=== PATIENT | male | born 1970 | race Caucasian/White ===

== ENCOUNTER → 2024-06-03 08:37 | Outpatient (REF) | payer BC, SELFPAY ==
[2024-06-03 13:28] LABS: % Basophils 0.8 % (0-2); % Eosinophils 0.7 % (0-6); % Immature Granulocytes 0.3 % (0-0.5); % Lymphocytes 36.7 % (20.5-51.1); % Monocytes 8.1 % (1.7-9.3); % Neutrophils 53.4 % (42.2-75.2); Absolute Basophils 0.1 10^3/uL (0-0.2); Absolute Lymphocytes 2.2 10^3/uL (1.2-3.4); Absolute Monocytes 0.5 10^3/uL (0.1-0.6); Absolute Neutrophils 3.2 10^3/uL (1.4-6.5); Hematocrit 43.7 % (39.0-52.0); Hemoglobin 14.9 g/dL (13.0-18.0); Mean Corp Hgb Conc. 34.1 g/dL (33.0-37.0); Mean Corpuscular Hgb 30.3 pg (27.0-31.0); Mean Corpuscular Volume 88.8 fL (80.0-94.0); Mean Platelet Volume 10.8 fL (7.4-10.4); Nucleated Red Blood Cells % 0 % (-); Platelet Count 244 10^3/uL (130-400); Red Blood Cell Count 4.92 10^6/uL (4.70-6.10)
[2024-06-03 13:54] LABS: ALT (SGPT) 30 U/L (0-50); AST (SGOT) 30 U/L (17-59); Albumin 4.6 g/dl (3.5-5.0); Alkaline Phosphatase 57 U/L (38-126); Blood Urea Nitrogen 15 mg/dl (9-20); Calcium 9.9 mg/dl (8.4-10.2); Carbon Dioxide 27 mmol/L (22-30); Chloride 102 mmol/L (98-107); Glucose 111 mg/dl (70-99); HDL Cholesterol 53 mg/dl; LDL Cholesterol, Calculated 162 mg/dl; Potassium 4.6 mmol/L (3.5-5.1); Sodium 140 mmol/L (135-145); Total Bilirubin 0.8 mg/dl (0.2-1.3); Total Cholesterol 256 mg/dl (50-199); Triglyceride 206 mg/dl (10-149); Very Low Density Lipoprotein 41 mg/dl (0-30); eGFR > 60.00
== END ==
LOC: HWLAB 08:37
PROVIDERS: ATTENDING PHYSICIAN Internal Medicine
DX: Z00.00 Encounter for general adult medical examination without abnormal findings (principal); Z12.5 Encounter for screening for malignant neoplasm of prostate; Z20.820 Contact with and (suspected) exposure to varicella
CPT/HCPCS: 36415; 80053; 80061; 85025; 86787

== ENCOUNTER → 2024-08-13 09:38 | Outpatient (REF) | payer BC, SELFPAY ==
[2024-08-13 12:13] LABS: HDL Cholesterol 48 mg/dl; LDL Cholesterol, Calculated 147 mg/dl; Total Cholesterol 229 mg/dl (50-199); Triglyceride 172 mg/dl (10-149); Very Low Density Lipoprotein 34 mg/dl (0-30)
[2024-08-13 13:42] LABS: Glycohemoglobin (HgbA1c) 5.7 % (4.0-5.6)
== END ==
LOC: HWLAB 09:38
PROVIDERS: ATTENDING PHYSICIAN Internal Medicine
DX: E78.5 Hyperlipidemia, unspecified (principal); R73.9 Hyperglycemia, unspecified
CPT/HCPCS: 36415; 80061; 83036

== ENCOUNTER → 2025-08-06 10:45 | Outpatient (REF) | payer BC, SELFPAY ==
[2025-08-06 11:56] LABS: Hematocrit 46.7 % (39.0-52.0); Hemoglobin 15.4 g/dL (13.0-18.0); Mean Corp Hgb Conc. 33.0 g/dL (33.0-37.0); Mean Corpuscular Volume 94.0 fL (80.0-94.0); Nucleated Red Blood Cells % 0 % (-); Platelet Count 183 10^3/uL (130-400); Red Cell Dist. Width 11.7 % (11.5-14.5)
[2025-08-06 14:08] LABS: ALT (SGPT) 29 U/L (0-50); AST (SGOT) 29 U/L (17-59); Albumin 4.7 g/dl (3.5-5.0); Alkaline Phosphatase 61 U/L (38-126); Blood Urea Nitrogen 15 mg/dl (9-20); Calcium 10.0 mg/dl (8.4-10.2); Carbon Dioxide 30 mmol/L (22-30); Chloride 103 mmol/L (98-107); Glucose 100 mg/dl (70-99); HDL Cholesterol 53 mg/dl; LDL Cholesterol, Calculated 154 mg/dl; Potassium 5.5 mmol/L (3.5-5.1); Sodium 137 mmol/L (135-145); Total Protein 7.4 g/dl (6.3-8.2); Very Low Density Lipoprotein 22 mg/dl (0-30); eGFR > 60.00
== END ==
LOC: REG 10:45
PROVIDERS: ATTENDING PHYSICIAN Internal Medicine
DX: Z00.01 Encounter for general adult medical examination with abnormal findings (principal); E66.3 Overweight; Z68.26 Body mass index [BMI] 26.0-26.9, adult; Z12.5 Encounter for screening for malignant neoplasm of prostate
CPT/HCPCS: 36415; 80053; 80061; 84153; 84154; 85025